=== PATIENT | male | born 1965 | race Caucasian/White ===

== ENCOUNTER 2022-01-13 16:59 | Emergency (ER) | payer MEDICAID ==
[~2022-01-13] VITALS: Ht 170.2 cm; Wt 97.7 kg
[2022-01-13] MEDS ORDERED: KETOROLAC TROMETHAMINE 30 MG/ML VIAL IM ONE (18:00)
[2022-01-13] MEDS ORDERED: PENI500T2 PO (18:22)
[2022-01-13] MEDS ORDERED: IBUP-2070 PO (18:22)
[2022-01-13] MEDS ORDERED: HYDR-4723 PO (18:23)
[2022-01-13 18:38] VITALS: BP 155/97
== END 2022-01-13 19:01 | disposition home or self-care (01) ==
LOC: EMS 16:59
DX: K08.89 Other specified disorders of teeth and supporting structures (principal)
CPT/HCPCS: 99283; 96372; J1885